=== PATIENT | male | born 1950 | race Caucasian/White ===

== ENCOUNTER 2024-02-14 13:16 | Emergency (ER) | payer MEDICARE, OTHER, SELFPAY ==
--- NOTE | 2024-02-14 13:18 | W.ED.GENAD ---
Discharge Plan Disposition Patient Disposition: Home Discharge Details Clinical Impression: Acute bacterial conjunctivitis of right eye Primary Care Provider: Harrison Mahmood ED Provider: Wes Sanders Home Meds and New Rx's Prescriptions: Continued sildenafil 100 mg tablet 100 mg PO DAILY PRN Patient Comments: TAKE 1 TABLET BY MOUTH ONCE DAILY NEEDED FOR 90 DAYS metoprolol tartrate 50 mg tablet 50 mg PO BID Patient Comments: TAKE 1 TABLET BY MOUTH TWICE DAILY WITH FOOD pravastatin 20 mg tablet 20 mg PO DAILY Patient Comments: TAKE 1 TABLET BY MOUTH ONCE DAILY furosemide 20 mg tablet 20 mg PO DAILY PRN Patient Comments: TAKE 1 TABLET BY MOUTH ONCE DAILY Discharge Instructions Instructions: How to Use Eye Ointment Additional Instructions: You are seen in the emergency department for your eye irritation. Please use this ointment every 6 hours for the next 7 days. Please follow-up with your primary care provider next week if your symptoms do not improve. As discussed if you develop fevers or lose vision in your eye please return to the emergency department. Discharge Data Discharge Date/Time-TO BE ENTERED AT DEPARTURE: 02/14/24 14:17 HPI General Date/Time Provider Initiated Documentation: 02/14/24 13:18. HPI Narrative: MDM This is an overall well-appearing normothermic and not tachycardic 73-year-old male with eye irritation but no obvious foreign bodies and no trauma to the eye for which patient will receive treatment for bacterial conjunctivitis, bilateral symptoms and age. No pain or proportion to suggest necrotizing soft tissue infection. No dysuria nor frequency to suggest UTI. No signs of hordeolum. No signs of orbital cellulitis. No trauma and no proptosis to suggest increased risk for retrobulbar hematoma. Patient is not hypoxic not having chest pain so my suspicion is low for pneumonia so I did not feel he required a chest x-ray. No eye pain so I did not feel that the patient had acute closed angle glaucoma so I did not check intraocular pressures. No uptake on fluorescein stain to suggest corneal abrasion. Given no eye pain I did not feel that the patient had retinal detachment so did not perform an ultrasound. Will treat patient with erythromycin eyedrops and advised PCP follow-up. We discussed that he should return to the ED if he developed any increasing eye irritation or decreased visual acuity. I advised twice daily warm washcloth compression. HPI This is a 73-year-old male arrived to the emergency department with his via private vehicle in the setting of irritation to his right thigh. Patient denies any specific trauma to his right eye. He does not wear contact lenses. He says that he has had cough and cold symptoms for the past several days. He has had the feeling that he has some grit in his right eye. He denies any fevers. He denies any chest pain shortness of breath. No changes in visual acuity. No anticoagulant use. Exam General: Elderly-appearing in no acute distress speaking in complete sentences. Head: Normocephalic, atraumatic. Eye:[Pupils equal, round reactive to light.] Extraocular eye movements intact. Mild right-sided conjunctival injection. No scleral icterus. No increased uptake on fluorescein stain. Lids and lashes appear intact. Bilateral medial canthi trace purulent drainage. No right eye proptosis. On slit-lamp exam anterior chamber deep and quiet. No cells or flare. No hyphema. No foreign bodies on lid eversion. Visual acuity from [employer] [place] showing 20/50 bilaterally and 20/50 left and right eye individually. Ear, nose, mouth, throat: Grossly normal inspection. Normal voice, handling secretions normally. Bilateral TMs clear. No significant posterior oropharynx erythema. Neck: Trachea midline. Cardiovascular: Well-perfused distal extremities. Respiratory: Nonlabored respiration. Gastrointestinal: Nondistended abdomen. Musculoskeletal: No edema. Moving all 4 extremities spontaneously. Skin: Normal for age and race, grossly normal temperature and turgor. No acute rash. Neurologic: Alert and appropriate, no apparent acute deficits. Psychiatric: Mood and manner are appropriate. Grooming and personal hygiene are appropriate. Related Data Home Medications ?Medication ?Instructions ?Recorded ?Confirmed furosemide 20 mg tablet 20 mg PO DAILY PRN 02/14/24 02/14/24 metoprolol tartrate 50 mg tablet 50 mg PO BID 02/14/24 02/14/24 pravastatin 20 mg tablet 20 mg PO DAILY 02/14/24 02/14/24 sildenafil 100 mg tablet 100 mg PO DAILY PRN 02/14/24 02/14/24 Allergies Allergy/AdvReac Type Severity Reaction Status Date / Time adhesive tape Allergy Mild Skin Rash Unverified 02/14/24 13:42 Medical Decision Making Quality:SDOH Health Related Social Needs: No Data to Display PFSH All Active Problems (Updated 02/14/24 @ 13:55 by Wes Sanders MD) Acute bacterial conjunctivitis of right eye (Acute) Social History Smoking risk assessment performed?: No
[2024-02-14 13:19] VITALS: BP 167/79; PULSE 87; RESP 20; TEMP 36.7; O2SAT 94
[2024-02-14 13:23] VITALS: BP 167/79; PULSE 87; RESP 20; TEMP 36.7; O2SAT 94
[2024-02-14] MEDS: Fluorescein STRIPS 100/BOX 1 MG OP (13:35)
[2024-02-14] MEDS: Tetracaine 0.5% 4 ML BTL OP (13:35)
[2024-02-14] MEDS: Erythromycin Ophth Oint 3.5 GM TUBE OD (13:55)
== END 2024-02-14 14:17 | disposition home or self-care (01) ==
LOC: ER 14:20
PROVIDERS: Emergency Provider Emergency Medicine; PCP Internal Medicine
DX: H10.31 Unspecified acute conjunctivitis, right eye (principal)
CPT/HCPCS: 99283